=== PATIENT | male | born 1980 | race Two or more races ===

== ENCOUNTER 2019-03-04 16:44 | Emergency (ER) | payer SELFPAY ==
[~2019-03-04] VITALS: Ht 165.1 cm; Wt 96.2 kg
[2019-03-04 16:53] VITALS: BP 117/73
[2019-03-04] MEDS ORDERED: LIDOCAINE 1%-EPI 1:100,000 20 ML VIAL ONE (17:12)
[2019-03-04] MEDS ORDERED: ACETAMINOPHEN ES 500 MG TABLET ONE (17:13)
[2019-03-04] MEDS ORDERED: TDAP [DIPH/PERTUSSIS/TET] 0.5 ML VIAL IM ONE ×2 (17:13→17:30)
[2019-03-04] MEDS ORDERED: ACETAMINOPHEN ES 500 MG TABLET PO ONE (17:30)
[2019-03-04] MEDS ORDERED: LIDOCAINE 1%-EPI 1:100,000 20 ML VIAL TP ONE (17:30)
--- NOTE | 2019-03-04 17:56 | NUR ---
LAC REPAIR DONE. 10 SUTURES NOTED. WOUND CARE PROVIDED. D/C IN STABLE CONDITION.
== END 2019-03-04 17:58 | disposition home or self-care (01) ==
LOC: ER 16:44
DX: S81.811A Laceration without foreign body, right lower leg, initial encounter (principal); W26.8XXA Contact with other sharp object(s), not elsewhere classified, initial encounter; Y93.89 Activity, other specified; Y92.098 Other place in other non-institutional residence as the place of occurrence of the external cause; Y99.8 Other external cause status
CPT/HCPCS: 12002; 90471; 90715; 99283; A6402; A6403; J3490

== ENCOUNTER 2019-03-06 19:21 | Emergency (ER) | payer SELFPAY ==
[~2019-03-06] VITALS: Ht 165.1 cm; Wt 84.8 kg
[2019-03-06 19:36] VITALS: BP 129/69
== END 2019-03-06 19:53 | disposition home or self-care (01) ==
LOC: ER 19:21
DX: S81.811D Laceration without foreign body, right lower leg, subsequent encounter (principal); X58.XXXD Exposure to other specified factors, subsequent encounter
CPT/HCPCS: Z7502

== ENCOUNTER 2019-03-15 21:01 | Emergency (ER) ==
[~2019-03-15] VITALS: Ht 175.3 cm; Wt 85.7 kg
[2019-03-15 21:16] VITALS: BP 133/76
== END 2019-03-15 21:33 | disposition home or self-care (01) ==
LOC: ER 21:01
DX: S81.811D Laceration without foreign body, right lower leg, subsequent encounter (principal); X58.XXXD Exposure to other specified factors, subsequent encounter